=== PATIENT | female | born 2000 | race Caucasian/White ===

== ENCOUNTER 2022-09-14 01:00 | Outpatient (CLI) | payer OTHER, MEDICAID, SELFPAY ==
[2022-09-14] VITALS (7 sets, daily range): BP systolic 125–141; BP diastolic 78–90; PULSE 89–109; O2SAT 98; BMI 23.9
[2022-09-14 01:37] LABS: Hematocrit 32.3 % (37-47); Mean Corp Hgb Conc 34.1 g/dL (32-36); Mean Corpuscular Hgb 28.9 pg (27.0-32.0); Mean Corpuscular Volume 84.8 fL (81-99); Mean Platelet Vol. 10.7 fl (6.2-12.0); Platelet Count 324 K/mm3 (150-450); RBC Distribution Width SD 39.8 fl (35.1-43.9); Red Blood Count 3.81 M/mm3 (4.2-5.4); White Blood Count 17.1 K/mm3 (4.4-11.0)
[2022-09-14 01:47] LABS: Protein, Urine (Random) 14.7 mg/dL (<11.9); Protein:Creat Ratio 157 mg/g CRE (0-200)
[2022-09-14 01:54] LABS: AST(SGOT) 13 U/L (15-37); Alanine Aminotransfer ALT/SGPT 16 U/L (13-56); Creatinine, Serum 0.66 mg/dL (0.55-1.02); EST Glomerular Filtration Rate 120 mL/min (>60); Est Glom Filt Rate - Afr Amer 145 mL/min (>60); Estimated Creatinine Clearance 121.33 ml/min; Uric Acid 2.6 mg/dL (2.6-6.0)
--- NOTE | 2022-09-19 18:52 | OB.TRI.NOTE ---
HPI - General HPI Narrative HERBERTH CARPENTER, is a 22 F who presents at 39w1d for tachycardia in office and elevated BP. No contractions or signs of labor. Denies any headache, visual changes, chest pain or RUQ abominal pain. PFSH PFSH Home Medications 1 tab PO/SL DAILY 09/14/22 [History Last Taken Unknown] Allergy/AdvReac Type Severity Reaction Status Date / Time No Known Allergies Allergy Verified 09/14/22 01:37 NST FHR Rate Baby A Baseline: 145 Variability:: Moderate Accelerations:: 15 x 15 Decelerations:: None NST Reactive:: Yes Uterine Activity:: Irregular, mild Assessment & Plan (1) tachycardia: PLAN: Plan 1) NST reactive, no longer tachycardia 2) Preeclampsia labs normal. Reviewed symptoms and when to call 3) D/C home
--- NOTE | 2022-09-19 18:57 | OB.TRI.HP_ITS ---
HPI - General HPI Narrative HERBERTH CARPENTER, is a 22 F who presents for headache and elevated BP. No RUQ abdominal pain. 33w5d Maternal Data Information SUMI Calculator Estimated Delivery Date Method Current WG Current Estimate 11/02/22 Manual 33w 5d PFSH PFSH Home Medications 1 tab PO/SL DAILY 09/14/22 [History Last Taken Unknown] Allergy/AdvReac Type Severity Reaction Status Date / Time No Known Allergies Allergy Verified 09/14/22 01:37 Visit Details OB Flowsheet Initial Weight: Not Recorded Date -?-?-?-?-?-?-?-?-?-?-?-?- EGA Weight BP Urine Prot -?-?-?-?-?-?-?-?-?-?-?-?- Glucose FHR FuHt Pres Dilation -?-?-?-?-?-?-?-?-?-?-?-?- Effaced St Visit Note 09/14/22 -?-?-?-?-?-?-?-?-?-?-?-?- 33w 0d 144 lb 140/90 141/89 131/78 125/82 138/88 131/85 -?-?-?-?-?--?-?-?-?-?-?-?- -?-?-?-?-?-?-?-?-?-?-?-?- NST FHR Rate Baby A Baseline: 135 Variability:: Moderate Accelerations:: 15 x 15 Decelerations:: None NST Reactive:: Yes Uterine Activity:: None Assessment & Plan (1) Headache: (2) 33 weeks gestation of : PLAN: Plan 1) Preeclampsia labs normal 2) BP stable 3) D/C home
== END 2022-09-14 02:30 | disposition home or self-care (01) ==
LOC: WPOUT 01:17 → WP 01:17
PROVIDERS: Visit Provider Advanced Practice Midwife
DX: O26.893 Other specified pregnancy related conditions, third trimester (principal); R51.9 Headache, unspecified; R03.0 Elevated blood-pressure reading, without diagnosis of hypertension; Z3A.33 33 weeks gestation of pregnancy
CPT/HCPCS: 36415; 59025; 59050; 82565; 82570; 84156; 84450; 84460; 84550; 85027; 99218; G0378

== ENCOUNTER 2022-09-25 17:15 | Outpatient (CLI) | payer OTHER, MEDICAID, SELFPAY ==
[2022-09-25 17:24] VITALS: BMI 24.9
[2022-09-25 17:40] VITALS: PULSE 90; O2SAT 99
[2022-09-25 17:42] VITALS: BP 137/90; PULSE 85
[2022-09-25 17:43] VITALS: TEMP 37
[2022-09-25 17:52] LABS: Hematocrit 31.7 % (37-47); Hemoglobin 10.4 g/dL (12.0-15.0); Mean Corp Hgb Conc 32.8 g/dL (32-36); Mean Corpuscular Hgb 27.9 pg (27.0-32.0); Mean Platelet Vol. 11.3 fl (6.2-12.0); Platelet Count 300 K/mm3 (150-450); RBC Distribution Width SD 39.8 fl (35.1-43.9); Red Blood Count 3.73 M/mm3 (4.2-5.4); White Blood Count 13.5 K/mm3 (4.4-11.0)
[2022-09-25 17:57] VITALS: BP 144/91; PULSE 89
[2022-09-25 18:07] LABS: Protein, Urine (Random) 6.8 mg/dL (<11.9); Protein:Creat Ratio 231 mg/g CRE (0-200)
[2022-09-25 18:08] LABS: AST(SGOT) 10 U/L (15-37); Alanine Aminotransfer ALT/SGPT 16 U/L (13-56); Creatinine, Serum 0.53 mg/dL (0.55-1.02); EST Glomerular Filtration Rate 153 mL/min (>60); Est Glom Filt Rate - Afr Amer 185 mL/min (>60); Estimated Creatinine Clearance 151.09 ml/min; Uric Acid 2.4 mg/dL (2.6-6.0)
[2022-09-25 18:12] VITALS: BP 141/90; PULSE 97
[2022-09-25] MEDS: Betamethasone/Betamethasone 30 MG/5 ML Vial 12 MG IM (18:57)
--- NOTE | 2022-09-25 20:03 | OB.TRI.NOTE ---
HPI - General General Date of Admission: 09/25/22 Date of Service: 09/25/22 Chief Complaint: elevated BP HPI Narrative HERBERTH CARPENTER, is a 1 para 0 at 34-4/7 weeks presents with elevated blood pressures at home. She has been evaluated in labor and delivery for blood pressures before. She had an intermittent headache but no active severe headache. She has had some increased edema. She denies epigastric pain. Maternal Data Information SUMI Calculator Estimated Delivery Date Method Current WG Current Estimate 11/02/22 Manual 34w 4d Final SUMI: 11/02/22 Gestational age: 34 4/7 PFSH PFSH Allergy/AdvReac Type Severity Reaction Status Date / Time No Known Allergies Allergy Verified 09/25/22 17:31 NST FHR Rate Baby A Baseline: 135 Variability:: Moderate Accelerations:: 15 x 15 Decelerations:: None NST Reactive:: Yes FHR Category:: Category I Uterine Activity:: no regular ctxs Assessment & Plan (1) 34 weeks gestation of : PLAN: Labs normal, no evidence of preeclampsia. F/u tomorrow for second bmz, close f/u, monitor BP at home, GBS at next visit. US for growth and fluid this week. NST reactive (2) Gestational hypertension without significant proteinuria during in third trimester, antepartum:
== END 2022-09-25 19:00 | disposition home or self-care (01) ==
LOC: WPOUT 17:21 → WP 17:23
PROVIDERS: Visit Provider Obstetrics & Gynecology
DX: O13.3 Gestational [pregnancy-induced] hypertension without significant proteinuria, third trimester (principal); R51.9 Headache, unspecified; Z3A.34 34 weeks gestation of pregnancy; O12.03 Gestational edema, third trimester
CPT/HCPCS: 59050; 82565; 82570; 84156; 84450; 84460; 84550; 85027; 96372; 99221; G0378; J0702

== ENCOUNTER 2022-10-02 17:20 | Outpatient (CLI) | payer OTHER, MEDICAID, SELFPAY ==
[2022-10-02] VITALS (8 sets, daily range): BP systolic 135–144; BP diastolic 89–94; PULSE 81–96; TEMP 36.8; O2SAT 99; BMI 25.4
--- NOTE | 2022-10-02 17:33 | EKG12_ITS ---
Test Reason : Palp Blood Pressure : / mmHG Vent. Rate : 091 BPM Atrial Rate : 091 BPM P-R Int : 138 ms QRS Dur : 076 ms QT Int : 338 ms P-R-T Axes : 044 047 002 degrees QTc Int : 415 ms Normal sinus rhythm Normal ECG Confirmed by MANNY CASILLAS, NELLA ([id number]), photo editor KEVON DELEON ([id number]) on 10/04/2022 9:52:57 AM Referred By: Nancy Bryson Confirmed By:NELLA BRYANT MD
[2022-10-02 18:21] LABS: Hematocrit 31.5 % (37-47); Hemoglobin 10.4 g/dL (12.0-15.0); Mean Corpuscular Hgb 27.7 pg (27.0-32.0); Mean Corpuscular Volume 83.8 fL (81-99); Mean Platelet Vol. 11.4 fl (6.2-12.0); Platelet Count 270 K/mm3 (150-450); RBC Distribution Width CV 13.3 % (11.6-14.6); Red Blood Count 3.76 M/mm3 (4.2-5.4); White Blood Count 14.3 K/mm3 (4.4-11.0)
[2022-10-02 18:41] LABS: AST(SGOT) 14 U/L (15-37); Alanine Aminotransfer ALT/SGPT 16 U/L (13-56); Creatinine, Serum 0.64 mg/dL (0.55-1.02); EST Glomerular Filtration Rate 123 mL/min (>60); Est Glom Filt Rate - Afr Amer 149 mL/min (>60); Estimated Creatinine Clearance 125.12 ml/min; Uric Acid 3.1 mg/dL (2.6-6.0)
[2022-10-02 18:50] LABS: Protein, Urine (Random) 38.6 mg/dL (<11.9); Protein:Creat Ratio 198 mg/g CRE (0-200)
[2022-10-02 18:52] LABS: Thyroid Stim Hormone (TSH) 2.63 uIU/mL (0.358-3.74)
--- NOTE | 2022-10-06 08:30 | OB.TRI.NOTE ---
HPI - General General Date of Admission: 10/02/22 Date of Service: 10/02/22 Chief Complaint: elevated BP HPI Narrative HERBERTH CARPENTER, is a 22 F who presents at 35w4d for r/o pre e. She was seen in the office and had off and on BACA's. No BACA today and no severe BACA's that won't resolve with Tylenol. No vision changes or upper abd pain. No ctx, vb, lof. Some palpitations. She is worried about her blood pressure. Maternal Data Information SUMI Calculator Estimated Delivery Date Method Current WG Current Estimate 11/02/22 Manual 36w 1d PFSH PFSH Allergy/AdvReac Type Severity Reaction Status Date / Time No Known Allergies Allergy Verified 10/02/22 17:52 Physical Exam Const alert and no apparent distress General Appearance: comfortable HEENT normocephalic Resp normal respiratory effort GI soft to palpation and non-tender Neuro deep tendon reflexes 2+ bilaterally NST FHR Rate Baby A Baseline: 130 Variability:: Moderate Accelerations:: 15 x 15 Decelerations:: None NST Reactive:: Yes FHR Category:: Category I Uterine Activity:: None Assessment & Plan (1) 35 weeks gestation of : PLAN: - BP all mild c/w gHTN - No pre e symptoms - Pre e labs WNL - Check TSH - Normal EKG - NST reactive - Follow up later this week in office to schedule 37 wk IOL - GBS sent (2) Gestational hypertension without significant proteinuria during in third trimester, antepartum:
== END 2022-10-02 19:24 | disposition home or self-care (01) ==
LOC: WPOUT 17:24 → WP 17:25
PROVIDERS: Obstetrics & Gynecology; Referring Provider Advanced Practice Midwife; Visit Provider Advanced Practice Midwife
DX: O10.92 Unspecified pre-existing hypertension complicating childbirth (principal); Z3A.35 35 weeks gestation of pregnancy
CPT/HCPCS: 36415; 59025; 59050; 82565; 82570; 84156; 84443; 84450; 84460; 84550; 85027; 87081; 93005; 99221; G0378

== ENCOUNTER 2022-10-12 19:05 | Inpatient (IN) | payer OTHER, MEDICAID, SELFPAY ==
[2022-10-12 19:32] VITALS: BP 149/94; PULSE 90; TEMP 36.5; O2SAT 99
[2022-10-12 19:37] VITALS: PULSE 98; O2SAT 99
[2022-10-12 19:42] VITALS: BMI 26.3
[2022-10-12] MEDS: Lactated Ringers 1,000 ML 50 ML IV (20:02)
[2022-10-12 20:04] LABS: Absolute Lymphocyte Count 2.39 X10^3/uL (0.83-4.51); Absolute Neutrophil Count 9.2 X10^3/uL (2.0-7.7); Basophil# 0.08 X10^3/uL; Basophil% 0.6 % (0-1); Eosinophil# 0.12 X10^3/uL; Eosinophils% 0.9 % (0-5); Hematocrit 32.2 % (37-47); Hemoglobin 10.4 g/dL (12.0-15.0); Lymphocyte # 2.39 X10^3/ul (0.83-4.51); Lymphocyte % 18.6 % (19-41); Mean Corp Hgb Conc 32.3 g/dL (32-36); Mean Corpuscular Hgb 26.9 pg (27.0-32.0); Mean Corpuscular Volume 83.2 fL (81-99); Mean Platelet Vol. 11.8 fl (6.2-12.0); Monocyte# 0.93 X10^3/uL; Monocyte% 7.3 % (0-10); NRBC Flagged by Analyzer 0 % (0-5); Neutrophil # 9.22 X10^3/uL (2.7-7.7); Platelet Count 299 K/mm3 (150-450); RBC Distribution Width CV 13.7 % (11.6-14.6); RBC Distribution Width SD 41.1 fl (35.1-43.9); Red Blood Count 3.87 M/mm3 (4.2-5.4); White Blood Count 12.8 K/mm3 (4.4-11.0)
[2022-10-12] MEDS: 0.9% Normal Saline Single 100 ML IV.SOLN. INTRA-UTER (20:11)
[2022-10-12] MEDS: miSOPROStol 25 MCG TABLET PO (20:19)
[2022-10-12 20:21] LABS: ALB/GLOB Ratio 0.7 RATIO (0.9-2.4); AST(SGOT) 15 U/L (15-37); Alanine Aminotransfer ALT/SGPT 18 U/L (13-56); Albumin, Serum 2.7 g/dL (3.2-5.0); Alkaline Phosphatase 172 U/L (45-117); Anion Gap 9 (5-15); BUN 11 mg/dL (7-18); BUN/Creat Ratio 14.4 RATIO (10-20); Calcium,Total 8.3 mg/dL (8.5-10.1); Chloride 109 mmol/L (98-107); Creatinine, Serum 0.77 mg/dL (0.55-1.02); EST Glomerular Filtration Rate 101 mL/min (>60); Est Glom Filt Rate - Afr Amer 122 mL/min (>60); Glucose 116 mg/dL (74-106); Potassium 3.8 mmol/L (3.5-5.1); Protein, Total 6.7 g/dL (6.4-8.2); Sodium Level 139 mmol/L (136-145)
--- NOTE | 2022-10-12 20:29 | PCM.HP.OB ---
HPI - General General Date of Admission: 10/12/22 Date of Service: 10/12/22 Chief Complaint: gHTN, induction of labor planned HPI Narrative HERBERTH CARPENTER, is a 22 F at 37w0d who presents for a scheduled IOL for gHTN. She is doing well. Has some anxiety regarding the induction but otherwise offers no complaints. No regular ctx, vb, lof. Good FM. No BACA, vision changes, upper abd pain. Has had off and on BACA's for weeks that are mild and resolve with Tylenol. Maternal Data Information SUMI Calculator Estimated Delivery Date Method Current WG Current Estimate 11/02/22 Manual 37w 0d PFSH PFSH Medical History (Updated 10/12/22 @ 20:[address] Saskia Barrios, DO) Anxiety Depression Gestational HTN Allergy/AdvReac Type Severity Reaction Status Date / Time No Known Allergies Allergy Verified 10/02/22 17:52 Family History (Updated 10/12/22 @ 19:51 by Karina Guzman) Other Substance use Social History Smoking Status: Never smoker History Elective abortions Hx Para 0 Spontaneous abortions Hx # Term Pregnancies Ectopic pregnancies Hx # Pregnancies Multiple births # of living children NST FHR Rate Baby A NST Reactive:: Yes FHR Category:: Category I Uterine Activity:: No regular ctx's Vital Signs Vital Signs Vital Signs: 10/12/22 19:32 10/12/22 19:32 10/12/22 19:32 Temperature Temperature Source Pulse Rate 90 Blood Pressure 149/94 H BP Systolic 149 BP Diastolic 94 Pulse Ox 99 10/12/22 19:32 10/12/22 19:32 10/12/22 19:37 Temperature 97.7 F L Temperature Source Temporal Pulse Rate 98 Blood Pressure BP Systolic BP Diastolic Pulse Ox 10/12/22 19:37 Temperature Temperature Source Pulse Rate Blood Pressure BP Systolic BP Diastolic Pulse Ox 99 Weight Weight: 158 lb 4.67 oz Body Mass Index (BMI) 26.3 Physical Exam Const alert and no apparent distress General Appearance: comfortable HEENT normocephalic Resp normal respiratory effort GI soft to palpation and non-tender GI Narrative: Gravid Extremity normal to inspection Labs Labs Labs: Blood Type Pending Antibody Screen Pending Hct 32.2 % (37-47) L Hgb 10.4 g/dL (12.0-15.0) L Assessment & Plan (1) 37 weeks gestation of : PLAN: Admit for routine intrapartum care for scheduled 37 IOL for gHTN. No symptoms of pre e. Will check pre e labs on admission. BP mild. Intracervical grover placed in usual fashion and filled with 30 cc saline. 1 dose of Cytotec given. Will start Pitocin once grover out. GBS negative. Epidural for pain control. EFW expected to be < 4500 g and pelvis adequate. Anticipate vaginal delivery. (2) Primiparous: (3) Gestational hypertension: (4) History of asthma: (5) History of depression:
[2022-10-12 20:40] LABS: Protein:Creat Ratio 328 mg/g CRE (0-200)
[2022-10-12 23:39] VITALS: TEMP 36.4; O2SAT 98
[2022-10-12 23:40] VITALS: BP 130/91; PULSE 75
[2022-10-12] MEDS: LACTATED RINGERS 500 ML 999 ML IV (23:53)
[2022-10-13] VITALS (52 sets, daily range): BP systolic 121–149; BP diastolic 71–96; PULSE 68–103; RESP 15–16; TEMP 36.1–37; O2SAT 94–100
[2022-10-13] MEDS: Oxytocin 15 Units/NS 250ml 15 UNITS/250 ML IV.SOLN 2 UNITS IV (00:30)
[2022-10-13] MEDS: fentaNYL-bupivacaine (epidural) 100 ML BAG EPIDURAL ×2 (01:40→05:46)
[2022-10-13] MEDS: Lactated Ringers 1,000 ML 200 ML IV (04:46)
--- NOTE | 2022-10-13 07:08 | PCM.PN.BLA ---
Progress Note At bedside to check on pt. She is comfortable with epidural. Assessment & Plan Assessment/Plan (1) History of depression: (2) History of asthma: (3) Primiparous: (4) 37 weeks gestation of : PLAN: Comfortable with epidural. Cvx 8/90/0. No membranes palpated on exam. With cervical exam small gush noted of clear fluid. Uncertain rupture time. (5) Pre-eclampsia:
[2022-10-13] MEDS: Ondansetron 4 MG/2 ML Vial IV (07:20)
--- NOTE | 2022-10-13 09:03 | EX.PCM.OBRPT ---
Assessment & Plan (1) (spontaneous vaginal delivery): (2) Periurethral abrasion, delivered, current hospitalization: (3) History of depression: (4) History of asthma: Maternal Data Information SUMI Calculator Estimated Delivery Date Method Current WG Current Estimate 11/02/22 Manual 37w 1d Vaginal Delivery Maternal Presentation Maternal Presentation: at 37 weeks gestation for induction of labor for preeclampsia. Type of Induction: Pitocin, Grover Bulb and Amniotomy Operative Information Date of Procedure: 10/13/22 Pre-Operative Diagnosis: Term gestation, Preeclampsia Post-Operative Diagnosis: , Live male Surgery / Procedure Performed: Spontaneous Vaginal Delivery Type of Anesthesia: Epidural Drain: Grover to straight drain Estimated Blood Loss: 200 Time of Delivery: 08:41 Findings Description of Procedure: Called to room soon after patient started pushing. With minimal maternal effort, head delivered over intact perineum. Anterior shoulder and remainder of body delivered without any traction. Vigorous male placed on maternal abdomen and attended to by nursing staff. Pitocin IV started for active management of the third stage of labor. 3 vessel cord clamped and cut by FOB after 3 minute delay. Infant placed immediately skin to skin on patient. Placenta delivered spontaneously and intact. Left periurithral laceration repaired in usual fashion using 3-0 Vicryl Rapid. Hemostasis obtained. Fundus firm 2 below U. EBL 200 cc. Apgars 8/9. Patient and bonding well at this time. Dr. Morel notified of delivery. Presentation: Vertex and ESTRELLA Amniotic Membrane Rupture Type: Artificial Time of Membrane Rupture: 2018 with placement of grover bulb Amniotic Fluid Description: Clear Placental Delivery Description: Spontaneous Placenta Disposition: [facility] Cord Vessel Description: 3 Vessels Cord Entanglement: None A Gender: Male (1 minute): 8 (5 minute): 9 Delayed Cord Clamping: Yes Post Vaginal Delivery Episiotomy Description: None Laceration: Periurethral Extnsion/lac Complication Complications: None
[2022-10-13] MEDS: Acetaminophen 500 MG Tablet 1000 MG PO ×2 (12:52→20:49)
[2022-10-13] MEDS: Naproxen 500 MG Tablet PO (17:17)
[2022-10-13] MEDS: Benzocaine/Lanolin/Aloe Vera 1 SPRAY EACH TOPICAL (19:47)
--- NOTE | 2022-10-13 20:56 | CASEMGMT ---
SW Note Referral Source: WP pipe fitter marine Reason: History of anxiety and depression SW went into see the MOB and FOB earlier in the day. MOB requested social psychologist come back later. Patient?s RN later advised that the MOB had apologized to the RN for how she acted toward this automobile and property underwriter. SW met with MOB and FOB again and MOB gave verbal consent to speak to her in the presence of the FOB. MOB and FOB were both excited about the nb and talked about how they chose his name and appeared to be bonding with the nb appropriately. Mom: Holger [facility] Control: Undecided yet Baby: Karsten Young : 10/13/2021 Apgars: 8/9 Weight: ?6# 4 ounces Slate Roofer Helper: Patricia ANUM reported that the nb latched on good for the first 2 hours. However, since his initial latch he has had some difficulty and has a little bit of ?tongue tied?. SW encouraged MOB to speak to senior energy consultant and educated her that she can use formula if it is too difficult to breast feed. MOB said that the FOB?s mother works at [email or web address] and has gotten them formula if it is needed. MOB' other children: First child Housing: MOB and FOB and nb reside with the FOB?s parents and twin sister. Transportation: MOB reports that she has access to transportation and is able to drive. Supplies: MOB reports she has bassinette, crib, diapers, clothes and car seat for the nb. Support: MOB said that ?everyone in the house? will be a support. MOB said that her sister, who resides in [place], ?will be moving in for 2 weeks? to help with the . 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 MOB said that she will return to work ?when it feels right?. Agency Involvement: MOB reports she has [employer]. MOB reports she is interested in applying for food stamps. MOB reports she is interested in applying for WIC. MOB declined referral to [facility]. MOB denied legal or CPS issues. MOB said that she has a counselor, Paula Malave who is from [facility]. MOB said that previously she saw Paula in person in [facility] but now sees him via zoom. 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 MOB reports she is not on any medication. MOB has a counselor, Paula Malave from [employer] [facility] [employer] in [facility]. MOB reports she has no appointment set with Paula Malave as she wants to ?see how the first few weeks go? but can see him on a PRN basis. MOB denied any current SI/HI. MOB denied any psych hospitalization. MOB reports she had suicidal thoughts 2 years ago but no attempts. MOB said that she had taken Adderall in the past for her ADHD, and it was helpful, but she discontinued the medication during her . MOB and FOB were educated on Shaken Baby Syndrome, PPD and Safe Sleeping. MOB reports no alcohol during . MOB said that this past spring she felt she was using alcohol as a coping skill, so she spoke to her counselor and addressed it. MOB denied drug use. ?ANUM is not a smoker PHQ 2 score is 0. ANUM was given resources on WIC in [facility] and [facility] application and [facility] application for food stamps and farrell assistance. Plan: Home at discharge Pamela DANG
[2022-10-14 00:20] VITALS: BP 112/62; PULSE 82; RESP 16; TEMP 36.4
[2022-10-14 04:41] VITALS: BP 128/75; PULSE 73
[2022-10-14 04:42] VITALS: BP 128/75; PULSE 73; RESP 16; TEMP 36.6
[2022-10-14 09:16] VITALS: BP 121/73; PULSE 82; RESP 16; TEMP 36.6
--- NOTE | 2022-10-14 11:17 | PCM.PN.OB ---
Subjective Subjective Patient seen at bedside. Feeling good. with minimal support. Denies pain. Ambulating and voiding without difficulty. Lochia decreasing. Desires dishcarge home today. Objective Data Objective Data Vital Signs: Vital Signs Temp Pulse Resp BP Pulse Ox O2 Del Method 97.8 F 82 16 121/73 H 98 Room Air 10/14/22 09:16 10/14/22 09:16 10/14/22 09:16 10/14/22 09:16 10/13/22 19:48 10/14/22 09:16 Oxygen Delivery Method Room Air Weight: 158 lb 4.67 oz Body Mass Index (BMI) 26.3 Intake & Output: Intake and Output for Last 24 Hours 10/12/22 10/13/22 10/14/22 23:59 23:59 23:59 Intake Total 24.17 / .17 2230.00 / 2230.00 Output Total 2024 / 2024 Balance 24.17 / 24.17 205.00 / 205.00 Lab / Micro Data Result Diagrams: 10/12/22 19:40 10/12/22 19:40 ROS Eyes Eyes: Denies blurry vision, change in vision or spots in vision ENT HEENT: Denies dizziness or headache(s) Cardiovascular Cardiovascular: Denies abdominal pain, chest pain or dyspnea Respiratory/Chest Respiratory/Chest: Denies cough, dyspnea, shortness of breath at rest or shortness of breath with exertion Gastrointestinal Gastrointestinal: Denies abdominal pain, diarrhea or vomiting Genitourinary Genitourinary: Denies change in urinary stream, difficulty urinating or dysuria Musculoskeletal Musculoskeletal: Reports none Integumentary Integumentary: Denies rash Neurologic Neurologic: Denies dizziness, headache(s), memory loss or weakness Physical Exam Const alert and no apparent distress General Appearance: cooperative and comfortable Exam Limitations: no limitations HEENT normocephalic Eyes General Eye: normal appearance of both eyes Neck full ROM General: normal visual inspection Chest Chest: symmetrical chest wall rise Resp normal respiratory effort and normal air movement Effort and Inspection: symmetric chest movement Auscultation: clear to auscultation bilaterally Cardio regular rate and regular rhythm GI normal to inspection, nondistended, normoactive bowel sounds Back/Spine normal ROM Extremity full ROM and no calf tenderness General Extremity: normal exam except as noted Skin no rashes or lesions noted Neuro CN's II-XII intact bilaterally Psych mental status grossly normal Assessment & Plan (1) Periurethral abrasion, delivered, current hospitalization: (2) (spontaneous vaginal delivery): PLAN: Plan PPD 1 Routine care support D/C home with follow up in office next week
--- NOTE | 2022-10-14 11:20 | DCINST_ITS ---
Discharge Instructions Diet Discharge Diet: No restrictions Activity Discharge Activity: Return to Normal Activity, May Shower and May Take a Tub Bath May resume sexual activity in: 4-6 weeks Weight Bearing Status: Weight bearing as tolerated Dressing / Incision Call your doctor if you observe: Inability to urinate, Using more than 1 pad per hour, Shortness of breath, Dizziness, Swelling in the ankles, Chest pain, Calf discomfort and Uncontrolled pain Follow Up Care When: Within 10 days Test Results: Test results from this visit will be discussed in further detail at your follow- up appointment, if applicable. Discharge Plan Admission Admit Date/Time: 10/12/22 19:05 Primary Reason for Your Visit: Labor and Delivery Attending Provider: Saskia Barrios Disposition Disposition (needs filled in before D/C Order can be placed): Home, Self Care
[2022-10-14 13:58] VITALS: BP 124/70; PULSE 88
[2022-10-14 13:59] VITALS: BP 124/70; PULSE 88; RESP 18; TEMP 36.2
== END 2022-10-14 14:42 | disposition home or self-care (01) | DRG 807 ==
PROVIDERS: Admitting Provider Obstetrics & Gynecology; Visit Provider Obstetrics & Gynecology
DX: O14.94 Unspecified pre-eclampsia, complicating childbirth (principal); Z37.0 Single live birth; O71.82 Other specified trauma to perineum and vulva; Z3A.37 37 weeks gestation of pregnancy; Z87.09 Personal history of other diseases of the respiratory system; Z86.59 Personal history of other mental and behavioral disorders
CPT/HCPCS: 59025; 59050; 80053; 82570; 84156; 85025; 86850; 86900; 86901; 99221; J7120; G0378; J2405

== ENCOUNTER 2024-03-17 15:35 | Outpatient (CLI) | payer MEDICAID, SELFPAY ==
[2024-03-17] VITALS (11 sets, daily range): BP systolic 119–141; BP diastolic 69–88; PULSE 90–108; RESP 16; TEMP 36.7; BMI 24.6
[2024-03-17 16:31] LABS: Hematocrit 33.5 % (37-47); Hemoglobin 10.9 g/dL (12.0-15.0); Mean Corp Hgb Conc 32.5 g/dL (32-36); Mean Corpuscular Hgb 26.9 pg (27.0-32.0); Mean Corpuscular Volume 82.7 fL (81-99); Mean Platelet Vol. 10.2 fl (6.2-12.0); Platelet Count 275 K/mm3 (150-450); RBC Distribution Width CV 13.8 % (11.6-14.6); RBC Distribution Width SD 41.2 fl (35.1-43.9); Red Blood Count 4.05 M/mm3 (4.2-5.4); White Blood Count 19.1 K/mm3 (4.4-11.0)
[2024-03-17 16:47] LABS: Protein, Urine (Random) 8.9 mg/dL (<11.9); Protein:Creat Ratio 266 mg/g CRE (0-200)
[2024-03-17 16:48] LABS: AST(SGOT) 18 U/L (15-37); Alanine Aminotransfer ALT/SGPT 16 U/L (13-56); Creatinine, Serum 0.42 mg/dL (0.55-1.02); EST Glomerular Filtration Rate 199 mL/min (>60); Est Glom Filt Rate - Afr Amer 241 mL/min (>60); Estimated Creatinine Clearance 187.46 ml/min; Uric Acid 1.7 mg/dL (2.6-6.0)
--- NOTE | 2024-03-17 18:53 | OB.TRI.NOTE ---
HPI - General General Date of Service: 03/17/24 HPI Narrative HERBERTH CARPENTER, is a 24 F @ 34.6 weeks who presents c/o headache h/o PRE E with previous PFSH PFSH Medical History (Updated 10/22/22 @ 00:03 by Luciano Fowler) Periurethral abrasion, delivered, current hospitalization (spontaneous vaginal delivery) Pre-eclampsia History of depression History of asthma Gestational hypertension Primiparous 37 weeks gestation of Anxiety Depression Gestational HTN Allergy/AdvReac Type Severity Reaction Status Date / Time No Known Allergies Allergy Verified 10/02/22 17:52 Family History (Updated 10/12/22 @ 19:51 by Karina Guzman) Other Substance use Social History Smoking Status: Never smoker History Elective abortions Hx Para 0 Spontaneous abortions Hx # Term Pregnancies Ectopic pregnancies Hx # Pregnancies Multiple births # of living children NST FHR Rate Baby A Baseline: 130 Variability:: Moderate Accelerations:: 15 x 15 Decelerations:: None NST Reactive:: Yes FHR Category:: Category I Uterine Activity:: irregular Assessment & Plan (1) 34 weeks gestation of : (2) Gestational hypertension without significant proteinuria during in third trimester, antepartum: PLAN: Plan @ 34.6 weeks- headache in 1) PRE E labs wnl 2) Follow up this week in office 3) BP on L&D, 2 mild range BPs others were WNL 4) NST was reactive, cat 1
== END 2024-03-17 17:40 | disposition home or self-care (01) ==
LOC: WPOUT 15:41 → WP 15:41
PROVIDERS: Referring Provider Obstetrics & Gynecology; Visit Provider Obstetrics & Gynecology
DX: O99.891 Other specified diseases and conditions complicating pregnancy (principal); R51.9 Headache, unspecified; Z3A.34 34 weeks gestation of pregnancy; J45.909 Unspecified asthma, uncomplicated; O13.3 Gestational [pregnancy-induced] hypertension without significant proteinuria, third trimester; O99.513 Diseases of the respiratory system complicating pregnancy, third trimester
CPT/HCPCS: 36415; 59025; 59050; 82565; 82570; 84156; 84450; 84460; 84550; 85027; 99221; G0378

== ENCOUNTER 2024-04-02 18:40 | Outpatient (CLI) | payer OTHER, MEDICAID, SELFPAY ==
[2024-04-02] VITALS (28 sets, daily range): BP systolic 125–139; BP diastolic 78–87; PULSE 80–105; RESP 16; TEMP 36.9; O2SAT 98–99; BMI 25.4
--- NOTE | 2024-04-02 19:05 | OB.TRI.NOTE ---
HPI - General HPI Narrative HERBERTH CARPENTER, is a 24 F at 36.4 weeks gestation who presents with dizziness, increased heartburn, nausea and headache behind her right eye. She came from work. Current diagnosis of GHTN and had preeclampsia with previous . [facility] Medical History (Updated 04/02/24 @ 19:58 by Lizeth Ha CNM) History of depression History of asthma Periurethral abrasion, delivered, current hospitalization (spontaneous vaginal delivery) Pre-eclampsia Gestational hypertension Primiparous 37 weeks gestation of Anxiety Depression Gestational HTN Home Medications ?Medication ?Instructions ?Recorded ?Last Taken ?Type aspirin 81 mg chewable tablet 1 tab PO DAILY 04/02/24 Unknown History (Aspirin Childrens) Allergy/AdvReac Type Severity Reaction Status Date / Time No Known Allergies Allergy Verified 10/02/22 17:52 Family History (Updated 10/12/22 @ 19:51 by Karina Guzman) Other Substance use Social History Smoking Status: Never smoker History Elective abortions Hx Para 0 Spontaneous abortions Hx # Term Pregnancies Ectopic pregnancies Hx # Pregnancies Multiple births # of living children ROS Eyes Eyes: Denies blurry vision, change in vision or spots in vision ENT HEENT: Denies dizziness Cardiovascular Cardiovascular: Denies abdominal pain, chest pain or dyspnea Respiratory/Chest Respiratory/Chest: Denies cough, dyspnea, shortness of breath at rest or shortness of breath with exertion Gastrointestinal Gastrointestinal: Denies abdominal pain, diarrhea or vomiting Genitourinary Genitourinary: Denies change in urinary stream, difficulty urinating or dysuria Musculoskeletal Musculoskeletal: Reports none Integumentary Integumentary: Denies rash Neurologic Neurologic: Denies dizziness, memory loss or weakness Psychiatric Psychiatric: Reports none Physical Exam Const alert and no apparent distress General Appearance: cooperative and comfortable Exam Limitations: no limitations HEENT normocephalic Eyes General Eye: normal appearance of both eyes Neck full ROM General: normal visual inspection Chest Chest: symmetrical chest wall rise Resp normal respiratory effort and normal air movement Effort and Inspection: symmetric chest movement Auscultation: clear to auscultation bilaterally Cardio regular rate and regular rhythm GI normal to inspection, nondistended, normoactive bowel sounds Back/Spine normal ROM Extremity full ROM and no calf tenderness General Extremity: normal exam except as noted Skin no rashes or lesions noted Neuro CN's II-XII intact bilaterally Psych mental status grossly normal Assessment & Plan (1) 36 weeks gestation of : (2) Gestational hypertension without significant proteinuria during in third trimester, antepartum: (3) POTS (postural orthostatic tachycardia syndrome): (4) Headache: (5) History of depression: (6) Anxiety: (7) History of asthma: PLAN: Plan BP - no severe ranges BP today 120-130/80's PIH labs collected and sent- within normal ranges P/C ratio slightly elevated at 300 Headache resolved Desires discharge home D/C home with preeclampsia precautions and follow up in office
[2024-04-02 19:51] LABS: Hematocrit 31.2 % (37-47); Hemoglobin 10.1 g/dL (12.0-15.0); Mean Corp Hgb Conc 32.4 g/dL (32-36); Mean Corpuscular Hgb 25.8 pg (27.0-32.0); Mean Corpuscular Volume 79.6 fL (81-99); Mean Platelet Vol. 10.8 fl (6.2-12.0); Platelet Count 311 K/mm3 (150-450); RBC Distribution Width CV 13.9 % (11.6-14.6); Red Blood Count 3.92 M/mm3 (4.2-5.4); White Blood Count 12.6 K/mm3 (4.4-11.0)
[2024-04-02 20:14] LABS: Protein, Urine (Random) 18.7 mg/dL (<11.9); Protein:Creat Ratio 300 mg/g CRE (0-200)
[2024-04-02 20:52] LABS: AST(SGOT) 17 U/L (15-37); Alanine Aminotransfer ALT/SGPT 21 U/L (13-56); Creatinine, Serum 0.51 mg/dL (0.55-1.02); EST Glomerular Filtration Rate 158 mL/min (>60); Est Glom Filt Rate - Afr Amer 191 mL/min (>60); Estimated Creatinine Clearance 167.81 ml/min; Uric Acid 2.3 mg/dL (2.6-6.0)
== END 2024-04-02 21:20 | disposition home or self-care (01) ==
LOC: WPOUT 18:48 → WP 18:49
PROVIDERS: Visit Provider Advanced Practice Midwife
DX: O13.3 Gestational [pregnancy-induced] hypertension without significant proteinuria, third trimester (principal); O99.353 Diseases of the nervous system complicating pregnancy, third trimester; G90.A Postural orthostatic tachycardia syndrome [POTS]; O99.891 Other specified diseases and conditions complicating pregnancy; R51.9 Headache, unspecified; O99.513 Diseases of the respiratory system complicating pregnancy, third trimester; J45.909 Unspecified asthma, uncomplicated; Z3A.36 36 weeks gestation of pregnancy; Z79.82 Long term (current) use of aspirin
CPT/HCPCS: 36415; 59025; 59050; 82565; 82570; 84156; 84450; 84460; 84550; 85027; 99221; G0378

== ENCOUNTER 2024-04-26 01:28 | Inpatient (IN) | payer OTHER, MEDICAID, SELFPAY ==
[2024-04-26] VITALS (28 sets, daily range): BP systolic 119–137; BP diastolic 56–90; PULSE 60–95; RESP 16–18; TEMP 36.3–36.9; O2SAT 98–100; BMI 26.1
[2024-04-26] MEDS: Lactated Ringers 1,000 ML 999 ML IV (01:40)
[2024-04-26] MEDS: Lactated Ringers 1,000 ML 200 ML IV (01:40)
[2024-04-26 01:59] LABS: Absolute Lymphocyte Count 2.97 X10^3/uL (0.83-4.51); Absolute Neutrophil Count 11.5 X10^3/uL (2.0-7.7); Basophil# 0.11 X10^3/uL; Basophil% 0.7 % (0-1); Eosinophil# 0.14 X10^3/uL; Eosinophils% 0.9 % (0-5); Hematocrit 37.1 % (37-47); Hemoglobin 11.8 g/dL (12.0-15.0); Lymphocyte # 2.97 X10^3/ul (0.83-4.51); Lymphocyte % 18.9 % (19-41); Mean Corp Hgb Conc 31.8 g/dL (32-36); Mean Corpuscular Hgb 25.2 pg (27.0-32.0); Mean Corpuscular Volume 79.3 fL (81-99); Mean Platelet Vol. 11.2 fl (6.2-12.0); Monocyte# 0.91 X10^3/uL; Monocyte% 5.8 % (0-10); NRBC Flagged by Analyzer 0 % (0-5); Neutrophil # 11.49 X10^3/uL (2.7-7.7); Neutrophil % 73.1 % (47-70); Platelet Count 311 K/mm3 (150-450); RBC Distribution Width CV 14.8 % (11.6-14.6); RBC Distribution Width SD 42.6 fl (35.1-43.9); Red Blood Count 4.68 M/mm3 (4.2-5.4); White Blood Count 15.7 K/mm3 (4.4-11.0)
[2024-04-26] MEDS: Ondansetron 4 MG/2 ML Vial IV (02:00)
[2024-04-26 02:11] LABS: AST(SGOT) 19 U/L (15-37); Alanine Aminotransfer ALT/SGPT 16 U/L (13-56); Creatinine, Serum 0.66 mg/dL (0.55-1.02); EST Glomerular Filtration Rate 119 mL/min (>60); Est Glom Filt Rate - Afr Amer 144 mL/min (>60); Estimated Creatinine Clearance 131.24 ml/min
[2024-04-26] MEDS: Oxytocin 15 Units/NS 250ml 15 UNITS/250 ML IV.SOLN 334 UNITS IV (02:16)
--- NOTE | 2024-04-26 02:26 | PCM.HP.OB ---
HPI - General General Date of Admission: 04/26/24 Date of Service: 04/26/24 HPI Narrative HERBERTH CARPENTER, is a 24 F who presents in active labor at term. Rapid delivery after admission. Maternal Data Information Final SUMI: 04/26/24 Gestational age: 40 PFSH PFSH Medical History Asthma Periurethral abrasion, delivered, current hospitalization (spontaneous vaginal delivery) Pre-eclampsia History of depression History of asthma Gestational hypertension Primiparous 37 weeks gestation of Anxiety Depression Gestational HTN Home Medications ?Medication ?Instructions ?Recorded ?Last Taken ?Type aspirin 81 mg chewable tablet 1 tab PO DAILY 04/02/24 Unknown History (Aspirin Childrens) Allergy/AdvReac Type Severity Reaction Status Date / Time No Known Allergies Allergy Verified 04/26/24 01:09 Family History Other Substance use Surgical History no surgical history Social History Smoking Status: Never smoker History 2 Elective abortions Hx Para 1 Spontaneous abortions Hx # Term Pregnancies Ectopic pregnancies Hx # Pregnancies Multiple births # of living children ROS Constitutional Constitutional: Denies fatigue, fever(s) or malaise Eyes Eyes: Denies change in vision ENT HEENT: Denies dizziness or headache(s) Cardiovascular Cardiovascular: Denies chest pain, dyspnea or lightheadedness Respiratory/Chest Respiratory/Chest: Denies cough or dyspnea Gastrointestinal Gastrointestinal: Denies change in bowel habits Genitourinary Genitourinary: Denies burning urination or genital lesions Integumentary Integumentary: Denies rash Neurologic Neurologic: Denies confusion, dizziness, headache(s), numbness or weakness Vital Signs Vital Signs Vital Signs: 04/26/24 01:12 04/26/24 01:12 04/26/24 01:12 Temperature Temperature Source Pulse Rate 93 Respiratory Rate Blood Pressure 137/86 H BP Systolic 137 BP Diastolic 86 Pulse Ox 98 04/26/24 01:13 04/26/24 01:13 04/26/24 01:13 Temperature 97.8 F Temperature Source Temporal Pulse Rate Respiratory Rate 16 Blood Pressure BP Systolic BP Diastolic Pulse Ox 04/26/24 01:51 04/26/24 01:51 04/26/24 02:25 Temperature Temperature Source Pulse Rate 81 Respiratory Rate Blood Pressure 135/62 H BP Systolic 135 BP Diastolic 62 Pulse Ox 99 04/26/24 02:25 Temperature Temperature Source Pulse Rate 75 Respiratory Rate Blood Pressure BP Systolic BP Diastolic Pulse Ox Weight Weight: 71.271 kg Body Mass Index (BMI) 26.1 Physical Exam Const alert and no apparent distress General Appearance: cooperative HEENT normocephalic Resp normal respiratory effort Cardio regular rate GI soft to palpation GI Narrative: gravid, nontender, appropriate for gestational age Extremity no calf tenderness General Extremity: edema Skin no wounds Rashes: No rashes noted Psych activity/motor behavior normal Labs Labs Labs: Blood Type A POSITIVE Antibody Screen NEGATIVE Hct 37.1 % (37-47) Hgb 11.8 g/dL (12.0-15.0) L Syphilis Total Ab Pending Assessment & Plan (1) Active labor at term: (2) Precipitate labor: (3) 40 weeks gestation of :
--- NOTE | 2024-04-26 02:31 | EX.PCM.OBRPT ---
Assessment & Plan (1) Precipitate labor: (2) (spontaneous vaginal delivery): Maternal Data Information Final SUMI: 04/26/24 Gestational age: 40 Vaginal Delivery Maternal Presentation Maternal Presentation: Active Labor and Spontaneous Rupture of Membranes Maternal Presentation: Presented at 4.5 cm and rapidly changed to complete Operative Information Date of Procedure: 04/26/24 Pre-Operative Diagnosis: Labor Post-Operative Diagnosis: labor Surgery / Procedure Performed: Spontaneous Vaginal Delivery Type of Anesthesia: None Estimated Blood Loss: 100 cc Time of Delivery: 02:12 Findings Description of Procedure: Pushed through 2-3 contractions delivering in OA presentation with a nuchal hand. The posterior arm was delivered across the chest and the remainder the body delivered. The cried upon delivery. The cord was clamped and cut. The placenta was delivered with gentle traction. There were no lacerations. Presentation: Vertex and GERA Amniotic Membrane Rupture Type: Spontaneous Time of Membrane Rupture: 0202 Amniotic Fluid Description: Clear Placental Delivery Description: Spontaneous Placenta Disposition: [facility] Cord Vessel Description: 3 Vessels Cord Entanglement: None Infant A Gender: Male (1 minute): 8 (5 minute): 9 Delayed Cord Clamping: Yes Post Vaginal Delivery Medications Given After Delivery: IV Pitocin Episiotomy Description: None Laceration: None Complication Complications: None
[2024-04-26] MEDS: Oxytocin 15 Units/NS 250ml 15 UNITS/250 ML IV.SOLN 83 UNITS IV (02:47)
[2024-04-26] MEDS: Acetaminophen 500 MG Tablet PO (02:56)
[2024-04-26 09:38] LABS: Syphilis Antibodies Non-reactive
[2024-04-27] VITALS (7 sets, daily range): BP systolic 109–119; BP diastolic 54–70; PULSE 60–136; RESP 16–18; TEMP 36.2–36.6; O2SAT 81–99
--- NOTE | 2024-04-27 08:24 | PCM.PN.OB ---
Subjective Subjective Doing well. Pain controlled. Mild lochia. Breast feeding well. Objective Data Objective Data Vital Signs: Vital Signs Temp Pulse Resp BP Pulse Ox O2 Del Method 97.6 F L 74 16 119/66 82 Room Air 04/27/24 08:04 04/27/24 08:07 04/27/24 08:04 04/27/24 08:07 04/27/24 08:06 04/27/24 08:04 Oxygen Delivery Method Room Air Weight: 71.271 kg Body Mass Index (BMI) 26.1 Intake & Output: Intake and Output for Last 24 Hours 04/25/24 04/26/24 04/27/24 23:59 23:59 23:59 Intake Total 1121.99 / 1121.99 Output Total 450 / 450 Balance 671.99 / 671.99 Lab / Micro Data 04/26/24 01:40 04/26/24 01:40 Labs: Laboratory Results - last 24 hr 04/26/24 01:40: Syphilis Total Ab Non-reactive ROS Constitutional Constitutional: Denies fatigue, fever(s) or malaise Eyes Eyes: Denies change in vision ENT HEENT: Denies dizziness or headache(s) Cardiovascular Cardiovascular: Denies chest pain, dyspnea or lightheadedness Respiratory/Chest Respiratory/Chest: Denies cough or dyspnea Gastrointestinal Gastrointestinal: Denies change in bowel habits Genitourinary Genitourinary: Denies burning urination or genital lesions Integumentary Integumentary: Denies rash Neurologic Neurologic: Denies confusion, dizziness, headache(s), numbness or weakness Physical Exam Const alert and no apparent distress Narrative: Fundus firm, below umbilicus. Assessment & Plan (1) (spontaneous vaginal delivery): (2) Precipitate labor:
--- NOTE | 2024-04-27 08:30 | PCM.DC.SUM ---
Providers Date of Admission: 04/26/24 Date of Discharge: 04/27/24 Primary Care Physician: Pauline Primary Care Phys Reason For Visit: VAG Diagnosis Discharge Diagnosis (1) (spontaneous vaginal delivery): Status: Acute Code(s): O80 - Encounter for full-term uncomplicated delivery (2) Precipitate labor: Status: Acute Code(s): O62.3 - Precipitate labor Hospital Course Operations None Procedures None Summary of Care Provided Minutes Spent on Discharge: 22 Hospital Course: Presented in active labor. Delivered 1 hour after arrival. No complications. No complications. Breast feeding. Physical Exam Const alert and no apparent distress Narrative: Fundus firm, below umbilicus. Weight / BMI Weight Weight: 71.271 kg Body Mass Index (BMI) 26.1 ABG / Lab / Microbiology Data 04/26/24 01:40 04/26/24 01:40 Laboratory: Laboratory Results - last 24 hr 04/26/24 01:40: Syphilis Total Ab Non-reactive D/C Instructions May resume sexual activity in: 6 weeks Please Follow Up With: Kaylen Morel MD When: Follow up with our office in 1-2 and 6 weeks or as needed. [phone] Meaningful Use Info Meaningful Use Meaningful Use Diagnoses (Choose all that apply): None applicable Ischemic Stroke Statin Dosing Therapy Reference: STATIN DOSE THERAPY REFERENCE: * Patients > 75 years receive moderate or high dose statin therapy. * Patients 75 years or YOUNGER should receive HIGH intensity statin dose unless contraindicated. You will be required to document reason for non-treatment if statin daily dose does not meet guidelines. HIGH DOSE STATIN THERAPY DAILY Atorvastatin > than or = to 40 mg Rosuvastatin > than or = to 20 mg Amlodipine + Atorvastatin > than or = to 2.5/40 mg Ezetimibe + Simvastatin 10/80 mg Simvastatin 80mg Discharge Plan Admission Admit Date/Time: 04/26/24 01:28 Primary Reason for Your Visit: labor Attending Provider: Araceli Ignacio Primary Care Provider: Care Physician,No Primary Discharge Orders/Prescriptions Prescriptions: Discontinued aspirin [Aspirin Childrens] 81 mg tablet,chewable 1 tab PO DAILY Referrals / Follow Up: Care Physician,No Primary [Primary Care Provider] - Disposition Disposition (needs filled in before D/C Order can be placed): Home, Self Care
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
== END 2024-04-27 13:25 | disposition home or self-care (01) | DRG 807 ==
LOC: WPOUT 01:30 → WP 01:30
PROVIDERS: Admitting Provider Obstetrics & Gynecology; Referring Provider Obstetrics & Gynecology; Visit Provider Obstetrics & Gynecology
DX: O62.3 Precipitate labor (principal); Z37.0 Single live birth; O69.82X0 Labor and delivery complicated by other cord entanglement, without compression, not applicable or unspecified; Z3A.40 40 weeks gestation of pregnancy; Z79.82 Long term (current) use of aspirin
CPT/HCPCS: 59025; 59050; 82565; 84450; 84460; 84550; 85025; 86780; 86850; 86900; 86901; 99221; J7120; G0378; J2405